=== PATIENT | female | born 1945 | race American Indian/Alaskan Native ===

== ENCOUNTER 2019-11-10 08:15 | Outpatient (CLI) | payer MEDICARE ==
--- NOTE | 2019-11-10 15:52 | Magnetic Resonance Report ---
BILATERAL BREAST MR WITHOUT AND WITH GADOLINIUM INDICATION: Newly diagnosed left breast cancer. COMPARISONS: Recent mammograms and left breast ultrasound from [facility] TECHNIQUE: Axial 1.0 mm T1 without, axial high-resolution 2.0 mm T2 and axial 1.0 mm dynamic vibrant high-resolution postcontrast T1 fat saturation sequences on a 1.5 Cheryle magnet. The examination was p erformed with an 8-channel dedicated [place] breast coil. Post-processing with CAD and subtraction was performed on an [employer] workstation. 19.0 cc of MultiHance was injected without incident for the c ontrast portion of the exam. Consent was obtained prior to the administration of the contrast. FINDINGS: RIGHT BREAST: The right breast is smaller than the left. Minimal background parenchymal enhancement. No mass or suspicious enhancement. No suspicious lymph nodes. LEFT BREAST: Mild background parenchymal enhancement. Contiguous hematomas at 12:00 and 11:00 correla te with the biopsy site of the known cancer at 1:30 o'clock 10 cm from the nipple. The hematomas crystal ure 4.3 x 1.9 x 2.8 cm and 2.6 x 1.9 x 1.3 cm respectively. No MRI finding is identified at the site of the benign biopsy at 1:00 5 cm from the nipple where there is an identifiable clip. However, suspi cious irregular focal non mass enhancement at 10:00 9 cm from the nipple measures 1.6 x 0.9 x 0.6 cm. It demonstrates heterogeneous enhancement with mixed kinetics, rapid initial enhancement, 139% peak enhancement and 4% type III washout. A suspicious level 2 axillary lymph node measures approximately 2 cm x 1.4 cm and has minimal central fat. IMPRESSION: 1. Known left breast cancer at 1:30 o'clock 10 cm from the nipple. Postbiopsy hematomas in the vicini ty of the biopsy measure approximately 6 cm maximum dimension. 2. A second suspicious lesion (non mass enhancement) of the left breast at 10:00 9 cm from the nipple . Recommend MRI guided biopsy. 3. A single suspicious left level 2 axillary lymph node. 4. Negative right breast. BI-RADS Category 6: Known cancer Signer Name: Ryan Manuel MD Signed: 11/10/2019 3:48 PM Workstation Name: [id number]
== END 2019-11-10 08:16 | disposition home or self-care (01) ==
LOC: SPVIMAG 08:15
PROVIDERS: ATTEND Surgery
DX: N63.42 Unspecified lump in left breast, subareolar (principal); N63.21 Unspecified lump in the left breast, upper outer quadrant; C50.912 Malignant neoplasm of unspecified site of left female breast
CPT/HCPCS: A9577; C8908; 77049

== ENCOUNTER 2019-11-30 08:35 | Outpatient (CLI) | payer MEDICARE ==
--- NOTE | 2019-11-30 14:30 | Ultrasound Report ---
ULTRASOUND-GUIDED NEEDLE CORE BIOPSY LEFT AXILLARY LYMPH NODE WITH CLIP PLACEMENT CLINICAL: Newly diagnosed left breast cancer and a suspicious left axillary lymph node on MRI. FINDINGS: The procedure was explained to the patient and informed consent was obtained. Ultrasound demonstrated a 1.9 cm level 1 axillary lymph node which correlates with the MRI finding. I marked the breast with a felt tip marker and a timeout was called. The skin was prepped with Chloro- Prep and anesthetized with 1% lidocaine. Needle core biopsy was performed through small dermatotomy using ultrasound guidance, 2% lidocaine wi th epinephrine for deep anesthesia and both 18-gauge and 14-gauge Achieve biopsy devices. To the cath eter of the lymph node and a suboptimal angle, it was difficult to image both 18 and 14-gauge needles . I did not feel confident firing the 14-gauge device. 2 cores were obtained with the 18-gauge device and placed in formalin. A clip was deployed adjacent to the lymph node. The patient tolerated the procedure well and there were no apparent complications. Hemostasis was ach ieved with minimal effort and a sterile dressing was applied. IMPRESSION: Uncomplicated ultrasound guided needle biopsy of a left axillary lymph node. However, poo r visualization of the biopsy needle. Signer Name: Ryan Manuel MD Signed: 11/30/2019 2:26 PM Workstation Name: [id number]
--- NOTE | 2019-12-02 16:40 | Mammography Report ---
DIGITAL DIAGNOSTIC MAMMOGRAM WITH CAD, 11/30/2019 INDICATION: POST CLIP MRI BIOPSY TECHNIQUE: Digital left mammographic imaging was performed. This examination was interpreted with the benefit of Computer-aided Detection analysis. COMPARISON: 11/10/2019 breast MRI. No comparison mammogram. FINDINGS: Breast Density: The breast is heterogeneously dense. A biopsy clip in the upper inner quadrant correl ates with the MRI biopsy site. It is on the opposite side of the nipple from the known cancer. IMPRESSION: Concordant clip placement with MRI biopsy. Follow up recommendation: No recall. BI-RADS Category 6: Known Biopsy-Proven Malignancy. A "normal" or negative report should not discourage follow up or biopsy of a clinically significant f inding. A written summary of these findings will be mailed to the patient. The patient will be entered into a mammography reporting system which will generate a reminder letter for the patient's next appointmen t at the appropriate interval. According to the [employer], yearly mammograms are recommended starting at age 40 and continuing as long as a woman is in good health. Breast MRI is recommended for women with an hilario roximately 20-25% or greater lifetime risk of breast cancer, including women with a strong family his tory of breast or ovarian cancer and women who have been treated for Hodgkin's disease. Signer Name: Ryan Manuel MD Signed: 11/30/2019 11:26 AM Workstation Name: [id number]
--- NOTE | 2019-12-02 16:40 | Magnetic Resonance Report ---
LEFT MRI GUIDED BREAST BIOPSY INDICATION: Known left outer breast cancer and a suspicious inner lesion identified by MRI. COMPARISONS: 11/10/2019 MRI TECHNIQUE: Axial 1.0 mm T1 without and axial 1.0 mm dynamic vibrant high-resolution postcontrast T1 f at saturation sequences on a 1.5 Cheryle magnet. 18.0 cc of MultiHance was injected without incident fo r the contrast portion of the exam. Consent was obtained prior to the administration of the contrast. Lesion targeting was performed with [employer] software. FINDINGS: A timeout was called and the skin was marked. A localization scan was performed and lesions were targ eted. Using 1% lidocaine for superficial anesthesia and 2% lidocaine with epinephrine for deep anesth esia, a 9 gauge vacuum-assisted biopsy was performed. Satisfactory targeting and sampling was confirm ed with imaging. Multiple cores were obtained and placed in formalin. A localizer clip was placed. Th e patient tolerated the procedure well and there were no apparent complications. Hemostasis was achie ruth with minimal effort. Steri-Strips and a sterile dressing were applied. A cold pack was applied to the breast. A post procedure mammogram demonstrated concordant clip placement. The patient left the department in good condition and was given instructions for wound care and follow-up. IMPRESSION: Uncomplicated successful MRI guided needle biopsy with clip placement left breast. BI-RADS Category 6: Known Cancer Signer Name: Ryan Manuel MD Signed: 11/30/2019 12:21 PM Workstation Name: [id number]
== END 2019-11-30 08:36 | disposition home or self-care (01) ==
LOC: SPVIMAG 08:35
PROVIDERS: ATTEND Surgery
DX: D05.12 Intraductal carcinoma in situ of left breast (principal); R92.0 Mammographic microcalcification found on diagnostic imaging of breast; I89.8 Other specified noninfective disorders of lymphatic vessels and lymph nodes
CPT/HCPCS: 19085; 38505; 76942; 77065; 88305; 88342; A4648; A9577

== ENCOUNTER 2020-11-17 13:32 | Outpatient (CLI) | payer MEDICARE ==
--- NOTE | 2020-11-17 14:20 | Mammography Report ---
DIGITAL DIAGNOSTIC MAMMOGRAM WITH CAD CONVENTIONAL, 11/17/2020 CLINICAL INFORMATION / INDICATION: PERSONAL HISTORY OF BREAST CA Z85.3 TECHNIQUE: Digital left mammographic imaging was performed. This examination was interpreted with the benefit of Computer-aided Detection analysis. COMPARISON: 05/24/2020, 11/30/2019 FINDINGS: Breast Density: There are scattered areas of fibroglandular density. No dominant mass, suspicious calcifications or architectural distortion in the left breast. Expected postoperative changes are noted along the 12:00 position middle/posterior depth. A biopsy cl ip is again seen in the 1:00 position anterior depth. IMPRESSION: No mammographic evidence of malignancy. Follow up recommendation: Routine yearly BI-RADS Category 2: Benign. A "normal" or negative report should not discourage follow up or biopsy of a clinically significant f inding. A written summary of these findings will be mailed to the patient. The patient will be entered into a mammography reporting system which will generate a reminder letter for the patient's next appointmen t at the appropriate interval. According to the [employer], yearly mammograms are recommended starting at age 40 and continuing as long as a woman is in good health. Breast MRI is recommended for women with an hilario roximately 20-25% or greater lifetime risk of breast cancer, including women with a strong family his tory of breast or ovarian cancer and women who have been treated for Hodgkin's disease. Signer Name: Sarath Herrera MD Signed: 11/17/2020 2:15 PM Workstation Name: [employer]
== END 2020-11-17 13:33 | disposition home or self-care (01) ==
LOC: SPVWC 13:32
PROVIDERS: ATTEND Surgery
DX: R92.8 Other abnormal and inconclusive findings on diagnostic imaging of breast (principal); Z85.3 Personal history of malignant neoplasm of breast

== ENCOUNTER 2021-11-01 12:59 | Outpatient (CLI) | payer MEDICARE ==
--- NOTE | 2021-11-02 10:57 | Mammography Report ---
DIGITAL SCREENING MAMMOGRAM WITH CAD, 11/01/2021 CLINICAL INFORMATION / INDICATION: Routine screening mammography. SCREENING MAMMO Z12.31 TECHNIQUE: Digital bilateral 2D mammography was obtained in the craniocaudal and mediolateral obliqu e projections. This examination was interpreted with the benefit of Computer-Aided Detection analysis . COMPARISON: 05/24/2020 FINDINGS: Breast Density: There are scattered areas of fibroglandular density. No dominant mass, suspicious calcifications, or architectural distortion in either breast. Lobectomy change again seen in the left breast as well as a biopsy clip and stable nodularity in the central right breast. IMPRESSION: No mammographic evidence of malignancy. Follow up recommendation: Routine yearly BI-RADS Category 2: BENIGN. A "normal" or negative report should not discourage follow up or biopsy of a clinically significant f inding. A written summary of these findings will be mailed to the patient. The patient will be entered into a mammography reporting system which will generate a reminder letter for the patient's next appointmen t at the appropriate interval. The [employer] recommends yearly mammograms starting at age 40 and continuing as l rashel as a woman is in good health. Breast MRI is recommended for women with an approximate 20-25% or greater lifetime risk of breast cancer, including women with a strong family history of breast or ova rosalva cancer or who have been treated for Hodgkin's disease. Signer Name: Rodrigo Rai MD Signed: 11/02/2021 10:52 AM Workstation Name: [id number]
== END 2021-11-01 13:00 | disposition home or self-care (01) ==
LOC: SPVWC 12:59
PROVIDERS: ATTEND Surgery
DX: Z12.31 Encounter for screening mammogram for malignant neoplasm of breast (principal); N64.89 Other specified disorders of breast
CPT/HCPCS: 77067